=== PATIENT | male | born 1985 | race Caucasian/White ===

== ENCOUNTER 2017-04-21 07:46 | Observation (INO) ==
--- NOTE | 2017-04-21 08:28 | Emergency Department Note ---
Overdose - MDM Narrative Medical decision making narrative: Patient has received 2 doses of Narcan in the emergency department. He is easily arousable. He is satting and maintaining airway at this time. We will admit the patient to the hospitalist for observation. The patient was accepted by Dr. Roberts. - Lab Data Lab results reviewed: Yes I reviewed the patient's lab results. Result diagrams: 04/21/17 08:34 04/21/17 09:18 Lab Results 04/21/17 04/21/17 04/21/17 Range/Units 08:34 08:34 08:37 WBC 5.2 (4.3-11.1) K/mcL RBC 5.13 (4.19-5.50) M/mcL Hgb 14.6 (12.9-16.9) g/dL Hct 43.7 (37.5-50.1) % MCV 85.2 (83.0-100.0) fL MCH 28.5 (28.0-33.3) pg MCHC 33.4 (31.6-35.5) g/dL RDW 13.0 (11.5-14.5) % Plt Count 154 (140-400) K/mcL MPV 12.1 (9.4-12.4) fL Immature Gran % 0.4 (0-4) % Seg Neutrophils % 65.6 % Lymphocytes % 23.3 % Monocytes % 7.6 % Eosinophils % 2.5 % Basophils % 0.6 % Neutrophils # 3.4 (1.6-8.9) K/mcL Lymphocytes # 1.2 (0.6-4.6) K/mcL Monocytes # 0.4 (0.0-1.3) K/mcL Eosinophils # 0.1 (0.0-0.6) K/mcL Basophils # 0.0 (0.0-0.2) K/mcL Sodium (136-145) mEq/L Potassium (3.5-4.5) mEq/L Chloride (98-109) mEq/L Carbon Dioxide (19-29) mEq/L BUN (8-26) mg/dL Creatinine (0.72-1.25) mg/dL Est GFR ( Amer) (> 60) Est GFR (Non-Af Amer) (> 60) BUN/Creatinine Ratio (6-26) Glucose (70-99) mg/dL Calculated Osmolality (280-300) Calcium (8.6-10.8) mg/dL Urine Color Yellow (Yellow) Urine Clarity Clear (Clear) Urine pH 6.0 (5.0-8.0) pH Units Ur Specific [place] 1.029 H (1.010-1.025) Urine Protein Negative (Neg-Trace) mg/dL Urine Glucose (UA) Normal (Normal) mg/dL Urine Ketones Negative (Negative) mg/dL Urine Blood Negative (Negative) Urine Nitrite Negative (Negative) Urine Bilirubin Negative (Negative) Urine Urobilinogen Normal (Normal) mg/dL Ur Leukocyte Esterase Negative (Negative) Ur Culture Indicated? NO (NO) Urine Opiates Screen (Sdhjpe=391) ng/mL Ur Barbiturates Screen (Gpkobg=985) ng/mL Ur Phencyclidine Scrn (Cutoff=25) ng/mL Ur Amphetamines Screen (Qlcspo=3715) ng/mL U Benzodiazepines Scrn (Xfthkm=489) ng/mL Urine Cocaine Screen (Cutoff= 300) ng/mL U Marijuana (THC) Screen (Cutoff = 50) ng/mL Specimen Rejected Hemolyzed 04/21/17 04/21/17 Range/Units 08:42 09:18 WBC (4.3-11.1) K/mcL RBC (4.19-5.50) M/mcL Hgb (12.9-16.9) g/dL Hct (37.5-50.1) % MCV (83.0-100.0) fL MCH (28.0-33.3) pg MCHC (31.6-35.5) g/dL RDW (11.5-14.5) % Plt Count (140-400) K/mcL MPV (9.4-12.4) fL Immature Gran % (0-4) % Seg Neutrophils % % Lymphocytes % % Monocytes % % Eosinophils % % Basophils % % Neutrophils # (1.6-8.9) K/mcL Lymphocytes # (0.6-4.6) K/mcL Monocytes # (0.0-1.3) K/mcL Eosinophils # (0.0-0.6) K/mcL Basophils # (0.0-0.2) K/mcL Sodium 138 (136-145) mEq/L Potassium 4.3 (3.5-4.5) mEq/L Chloride 105 (98-109) mEq/L Carbon Dioxide 25 (19-29) mEq/L BUN 13 (8-26) mg/dL Creatinine 0.83 (0.72-1.25) mg/dL Est GFR ( Amer) > 60 (> 60) Est GFR (Non-Af Amer) > 60 (> 60) BUN/Creatinine Ratio 16 (6-26) Glucose 93 (70-99) mg/dL Calculated Osmolality 286 (280-300) Calcium 9.1 (8.6-10.8) mg/dL Urine Color (Yellow) Urine Clarity (Clear) Urine pH (5.0-8.0) pH Units Ur Specific [place] (1.010-1.025) Urine Protein (Neg-Trace) mg/dL Urine Glucose (UA) (Normal) mg/dL Urine Ketones (Negative) mg/dL Urine Blood (Negative) Urine Nitrite (Negative) Urine Bilirubin (Negative) Urine Urobilinogen (Normal) mg/dL Ur Leukocyte Esterase (Negative) Ur Culture Indicated? (NO) Urine Opiates Screen Negative (Mqfqhd=654) ng/mL Ur Barbiturates Screen Negative (Yzsfon=228) ng/mL Ur Phencyclidine Scrn Negative (Cutoff=25) ng/mL Ur Amphetamines Screen Negative (Kweqzk=9311) ng/mL U Benzodiazepines Scrn Positive H (Tygcgz=842) ng/mL Urine Cocaine Screen Positive H (Cutoff= 300) ng/mL U Marijuana (THC) Screen Negative (Cutoff = 50) ng/mL Specimen Rejected - Radiology Data Radiology results reviewed: Yes I reviewed the patient's radiology results. - EKG Data EKG attestation: Yes I reviewed and interpreted this EKG. EKG results narrative: Heart rate 99 bpm. MA interval 153 ms. QTC 391 ms. Normal sinus rhythm. No ST elevation or ST depression noted. Similar in morphology to EKG from 2010. No acute changes noted. Overdose HPI - General Chief Complaint: ED Overdose Stated Complaint: Overdose Time Seen by Provider: 04/21/17 07:54 Source: EMS Mode of arrival: EMS Limitations: altered mental status Nursing Notes Reviewed: Yes Vital Signs Reviewed: Yes - History of Present Illness HPI Narrative: 31-year-old male with unknown medical history arrives to the emergency department with apparent drug overdose. The patient had unknown substance that he took it was unable to describe to police or EMS. The patient is conscious and answering some questions appropriately and is able to give us his name. He is following some commands at this time. Upon further questioning arrival to the emergency department he states that he took Soma and Xanax. The patient is maintaining his airway at this time. We will obtain labs and admit the patient to the hospitalist service. The patient denies any other complaints at this time. Pt Subjective Complaint: accidental overdose Onset (ago): unknown Intent: accidental Treatments Prior to Arrival: monitor - Related Data Home Medications Medication Instructions Recorded Confirmed Buprenorphine HCl/Naloxone HCl 1 each SL BID 05/31/15 04/21/17 [Suboxone 8 mg-2 mg Sl Film] Allergies Allergy/AdvReac Type Severity Reaction Status Date / Time No Known Allergies Allergy Verified 04/21/17 09:29 All systems ED: reviewed and negative except as stated. Constitutional: Denies: fever, chills, weakness ENT ED: Denies: congestion Cardiovascular: Denies: chest pain Respiratory: Denies: dyspnea Gastrointestinal: Denies: abdominal pain, nausea, vomiting Genitourinary: Denies: urgency, dysuria Neurological: Reports: confusion (But intoxicated.) Past Medical History - Past Medical History Attestation: Yes The following information was validated with the patient. Source: patient Medical history: Reports: no medical history Psychiatric history: Reports: no psych history - Social History Smoking Status: Current every day smoker Alcohol use: Reports: none Drug use: Reports: none Physical Exam - General Limitations: altered mental status General appearance: lethargic - Head Head exam: atraumatic, normocephalic, normal inspection - Eye Eye exam: Present: normal appearance, PERRL, EOMI - ENT ENT exam: normal exam, normal oropharynx, mucous membranes moist - Neck Neck exam: Present: normal inspection, full ROM, trachea midline - Chest Chest inspection: Present: normal inspection, symmetric chest wall rise - Respiratory Respiratory exam: Present: normal lung sounds bilaterally - Cardiovascular Cardiovascular exam: Present: regular rate, normal rhythm, normal heart sounds - Abdominal Exam Abdominal exam: Present: soft, Non-Tender. Absent: tenderness, distention, guarding, rebound, rigidity - Extremities Exam Extremities exam: Present: normal inspection, full ROM. Absent: tenderness, pedal edema - Neurological Exam Neurological exam: Present: alert, CN II-XII intact - Expanded Neurological Exam Patient oriented to: Present: person, place, time Speech: Present: fluid speech Coma Scale Eye Opening: Spontaneous Coma Scale Motor Response: Obeys Commands Coma Scale Verbal Response: Confused Coma Scale Total: 14 Course - Reevaluation(s) Reevaluation #1: Review of the patient's head CT revealed a area of low attenuation concerning for possible recent infarction. The patient has no bleeding and will likely need an MRI once admitted. We will notify the admitting physician. Time: 11:19 Vital Signs Temperature 97.3 F L 04/21/17 07:48 Pulse Rate 88 04/21/17 07:48 Respiratory Rate 10 04/21/17 07:48 Blood Pressure 104/95 04/21/17 07:48 O2 Sat by Pulse Oximetry 96 04/21/17 07:48 Temperature 97.7 F 04/21/17 13:39 Pulse Rate 79 04/21/17 13:39 Respiratory Rate 14 04/21/17 13:39 Blood Pressure 115/75 04/21/17 13:39 O2 Sat by Pulse Oximetry 95 04/21/17 13:39 Oxygen Delivery Oxygen Delivery Room Air Disposition Clinical Impression: Polysubstance abuse, Abnormal head CT Drug overdose Qualifiers: Encounter type: initial encounter Injury intent: accidental or unintentional Qualified Code(s): T50.901A - Poisoning by unspecified drugs, medicaments and biological substances, accidental (unintentional), initial encounter Altered mental status Qualifiers: Altered mental status type: somnolence Qualified Code(s): R40.0 - Somnolence Disposition: Admitted As Inpatient Condition: Undetermined Time of Disposition: 10:18 Attestation Statement - Attestation Attestation: I examined this patient and my medical decision-making was reviewed with the Resident Physician, Dr. Velasco. I agree with the documented findings, disposition and treatment plan as described except to the extent set forth below. Patient is a 31-year-old white male who presents to us by EMS today following a drug overdose. Patient as well as his were both brought to the emergency department today and according to medics they had reportedly been going out on a date and their children all with the grandmother, they were both found wandering and altered outside after the aide walked away from the vehicle. The patient's required intubation and is in the ICU. Patient arrives drowsy but able to arouse with loud voice, appears confused but is able to answer his name answer basic questions about whether he is having any pain or discomfort or symptoms. Patient also was able to tell us that he was taking Soma Xanax and crack cocaine. Patient was given a dose of Narcan with some mild improvement in symptoms. Patient denies any history of falls or trauma. I agree with patient's physical exam findings as documented. Labs were drawn including drug screen EtOH and portal chest x-ray. Patient's labs show positive for benzos and cocaine consistent with his oral history. Did recheck manually a blood pressure after the blood pressure machine gave us a falsely elevated reading, manual blood pressures show stable blood pressure. Patient was sent for CT scan as we are not able to adequately assess his neurologic status due to polysubstance abuse. CT shows questionable findings in the posterior parietal lobe of increased attenuation questionable infarct which is a possibility considering his long-standing cocaine abuse. EKG does not show any acute ischemia. Patient's denying any chest pain pressure or heaviness, denies any headache, denies any nausea vomiting. Patient's mother arrived later during his ED course stating that he has had greater than 15 year history of crack cocaine abuse. Due to patient's ongoing drowsiness and abnormal head CT finding we will admit him for further evaluation and treatment and possible neurologic consult. Patient will also need psychiatric reassessment once his baseline mental status returns. Patient was admitted to the hospitalist service for further evaluation and management. Patient had no deterioration of his mental status while in the emergency department and his vital signs remained stable.
[2017-04-21 08:55] LABS: Basophils % 0.6 %; Eosinophils # 0.1 K/mcL (0.0-0.6); Eosinophils % 2.5 %; Hematocrit 43.7 % (37.5-50.1); Hemoglobin 14.6 g/dL (12.9-16.9); Immature Granulocytes % 0.4 % (0-4); Lymphocytes # 1.2 K/mcL (0.6-4.6); Lymphocytes % 23.3 %; Mean Corpuscular HGB Conc 33.4 g/dL (31.6-35.5); Mean Corpuscular Hemoglobin 28.5 pg (28.0-33.3); Mean Corpuscular Volume 85.2 fL (83.0-100.0); Mean Platelet Volume 12.1 fL (9.4-12.4); Monocytes # 0.4 K/mcL (0.0-1.3); Monocytes % 7.6 %; Neutrophils # 3.4 K/mcL (1.6-8.9); Platelet Count 154 K/mcL (140-400); Red Blood Count 5.13 M/mcL (4.19-5.50); Segmented Neutrophils % 65.6 %
[2017-04-21 09:02] LABS: Bilirubin,Urine Negative (Negative); Blood,Urine Negative (Negative); Clarity,Urine Clear (Clear); Color,Urine Yellow (Yellow); Glucose,Urine (UA) Normal (Normal); Ketones,Urine Negative (Negative); Leukocyte Esterase,Urine Negative (Negative); Nitrite,Urine Negative (Negative); Protein,Urine Negative (Neg-Trace); Specific Gravity,Urine 1.029 (1.010-1.025); Urobilinogen,Urine Normal (Normal)
[2017-04-21 09:28] LABS: Amphetamine Screen,Urine Negative ng/mL (Cutoff=1000); Barbiturate Screen,Urine Negative ng/mL (Cutoff=200); Benzodiazepines Screen,Urine Positive ng/mL (Cutoff=200); Cannabinoid Screen,Urine Negative ng/mL (Cutoff = 50); Cocaine Screen,Urine Positive ng/mL (Cutoff= 300); Opiate Screen,Urine Negative ng/mL (Cutoff=300); Phencyclidine Screen,Urine Negative ng/mL (Cutoff=25)
[2017-04-21 10:03] LABS: BUN/Creatinine Ratio 16 (6-26); Blood Urea Nitrogen 13 mg/dL (8-26); Calcium 9.1 mg/dL (8.6-10.8); Carbon Dioxide 25 mEq/L (19-29); Chloride 105 mEq/L (98-109); Glucose 93 mg/dL (70-99); Osmolality,Calculated 286 (280-300); Potassium 4.3 mEq/L (3.5-4.5); Sodium 138 mEq/L (136-145); eGFR For African Americans > 60 (> 60); eGFR For Non-African Americans > 60 (> 60)
[2017-04-21] MEDS ORDERED: Naloxone 0.4 MG/ML INJ IVP PRN (11:57)
[2017-04-21] MEDS ORDERED: Acetaminophen 325 MG TABLET PO PRN (12:03)
[2017-04-21] MEDS ORDERED: Ondansetron 4 MG/2 ML VIAL IVP PRN (12:03)
[2017-04-21] MEDS ORDERED: *HR* LORazepam 2 MG/ML VIAL IVP PRN (12:11)
--- NOTE | 2017-04-21 12:22 | Internal Med History&Physical ---
<Stephan Hensley - Last Filed: 04/21/17 15:54> Date of Encounter: 04/21/17 Time of Encounter: 11:15 Assessment and Plan (1) Drug overdose Current visit: Yes Status: Acute Pt. presents with drug overdose last night. Pt. is somnolent on exam and unable to speak. When first admitted to ED, pt. was awake and reported that he took Soma and Xanax. Urine drug screen positive for benzodiazepines and cocaine. Pts. mother reports he uses crack cocaine. On exam, pt. is somnolent and hard to wake up even w/sternal rub. D/t pts. somnolence, unclear if overdose was intentional or accidental. Pts. currently in ICU d/t drug overdose as well. Pts. mother reports he would not attempt suicide and pt. has no psych or suicide attempt hx. Aspiration precautions and padding for side rails ordered. CT of the head shows findings suspicious for presence of area of asymmetric low attenuation within posterior parasagittal parietal occipital region. Finding raises possibility of changes associated with acute/ recent infarction. Clinical correlation would be helpful. Follow-up MRI examination with diffusion imaging is recommended for more complete evaluation. MRI ordered to r/ o possible infarct/ischemia. Continuous telemetry. Supplemental O2 and SpO2 monitoring. Ativan 1 mg Q6 PRN for agitation d/t withdrawal. SW consult ordered to assess for rehab needs. Will consider neurology consult based on MRI results. Monitor f/u labs and pt. closely. Pt. discussed w/Dr. Roberts who agrees w/plan of care. Pt. is at high risk for further morbidity d/t current drug overdose and 15-year hx of drug abuse. Observation. Qualifiers: Encounter type: initial encounter Injury intent: accidental or unintentional Qualified Code(s): T50.901A - Poisoning by unspecified drugs, medicaments and biological substances, accidental (unintentional), initial encounter (2) Altered mental status Current visit: Yes Status: Acute Pt. presents with altered mental status d/t drug overdose. On admission when patient was awake, he reported taking Soma and Xanax. Pts. drug screen is positive for benzodiazepines and cocaine. On exam, pt. is somnolent and hard to wake up even w/sternal rub. Aspiration precautions and padding for side rails ordered. CT of the head shows findings suspicious for presence of area of asymmetric low attenuation within posterior parasagittal parietal occipital region. Finding raises possibility of changes associated with acute/ recent infarction. Clinical correlation would be helpful. Follow-up MRI examination with diffusion imaging is recommended for more complete evaluation. MRI ordered to r/o possible infarct/ischemia. Continuous telemetry. Supplemental O2 and SpO2 monitoring. Monitor f/u labs and pt. closely. Qualifiers: Altered mental status type: somnolence Qualified Code(s): R40.0 - Somnolence (3) DVT prophylaxis Current visit: Yes Status: Acute Bilateral SCDs on LEs for DVT prophylaxis. Internal Medicine - H&P: HPI Chief complaint: Drug Overdose Admitted From: Emergency Dept Plans for Post Hospital Care: Home History of present illness: Mr. Cullen is a 31 year old male with no medical hx presents from the ED with chief complaint of drug overdose. Pt. is somnolent and non-responsive at the present time. Pts. mother is present and reports that she spoke with the pt. last night at midnight via phone and he was fine. Pts. is also currently admitted in ICU for similar drug overdose. Pts. urine drug screen is positive for benzodiazepines and cocaine. Upon arrival to ED when pt. was awake, he reported that he took Soma and Xanax. Pts. mother reports he also uses crack cocaine. Pt. is unable to confirm is overdose was intentional, but mother feels that it was not and that he would not attempt suicide. Pt. has no prior psychiatric hx or suicide attempt. Past Med Surg Social Fam HX - Past Medical History Source: old records reviewed, obtained from family Medical history: no medical history Psychiatric history: no psych history - Social History Smoking Status: Current every day smoker Packs per day: 1 PPD Alcohol use: none Drug use: cocaine, prescription drug abuse Current living situation: Home, With Family Activity Level: Independent ambulation Recent Out of Country Travel Within the Last 8 Weeks: No Exposure or Possible Exposure to Illness During Travel: No - Family History Father Race: Family Member Ethnicity: Non- Living Status: Still Living Hx Family Cardiac Disorders: Yes (CAD) Hx Family Endocrine Disorder: Yes (DM) Mother Race: Family Member Ethnicity: Non- Living Status: Still Living Hx Family Cardiac Disorders: Yes (HTN) Sister Race: Family Member Ethnicity: Non- Living Status: Still Living Hx Family Medical Disorders: No Internal Medicine - H&P: Meds Buprenorphine HCl/Naloxone HCl [Suboxone 8 mg-2 mg Sl Film] 1 each SL BID [History] 3 Allergy/AdvReac Type Severity Reaction Status Date / Time No Known Allergies Allergy Verified 04/21/17 09:29 ROS unobtainable: due to mental status All Systems PM: A 10-system review of systems was performed and is negative for pertinent findings except as documented above in the HPI. - Constitutional Vitals: Temp Pulse Resp BP Pulse Ox 97.3 F L 89 23 145/94 96 04/21/17 07:48 04/21/17 11:46 04/21/17 11:46 04/21/17 11:46 04/21/17 11:46 General appearance: Present: A&O X 0 - Head Head exam: Present: atraumatic, normocephalic - Eye Eye exam: Present: PERRL, conjuntiva pink, sclera anicteric Pupils: Present: PERRL - ENT ENT exam: Present: normal exam - Neck Neck exam general surgery: Present: normal inspection, trachea midline - Respiratory Respiratory exam: Present: CTAB. Absent: accessory muscle use, rales, rhonchi, wheezes - Cardiovascular Cardiovascular exam: Present: RRR, +S1, +S2. Absent: diastolic murmur, gallop, rubs, systolic murmur - GI/Abdominal GI/Abdominal exam: Present: normal bowel sounds, soft, no peritoneal signs. Absent: distended, tenderness - Rectal Rectal exam: Present: deferred - Additional comments: exam deferred. - Extremities Exam Extremities exam: Present: warm, radial pulses palpable and symmetrical. Absent : calf tenderness, cyanotic, pedal edema - Neurological Exam Neurological exam: Present: altered - Skin Skin exam: Present: dry, intact Internal Med - H&P Results - Labs CBC & Chem 7: 04/21/17 08:34 04/21/17 09:18 - EKG Data EKG shows normal: sinus rhythm - EKG Data Prior EKG available for review: yes When compared to previous EKG: there is no significant change Interpretation IM: normal EKG EKG comments: 04/21/17 12:25 EKG dated 01/13/11 shows sinus rhythm with lateral ST elevation and possible early repolarization. EKG dated 04/21/17 shows sinus rhythm and normal ECG. - Diagnostic Studies CT scan - head Additional comments: Impressions Head CT 04/21/17 10:28 IMPRESSION: Findings suspicious for presence of area of asymmetric low attenuation within posterior parasagittal parietal occipital region. Finding raises possibility of changes associated with acute/ recent infarction. Clinical correlation would be helpful. Follow-up MRI examination with diffusion imaging is recommended for more complete evaluation. D/ / Saul Melnedez MD / Saul Melendez MD Interpreting Provider: Saul Melendez MD Chest x-ray Additional comments: Impressions Chest X-Ray 04/21/17 08:02 IMPRESSION: No acute cardiopulmonary process identified. D/ / Kenn Posada MD / Kenn Posada MD Interpreting Provider: Kenn Posada MD <Cindy Roberts - Last Filed: 04/21/17 16:11> Date of Encounter: 04/21/17 Internal Medicine - H&P: HPI History of present illness: Mr. Cullen is a 31 year old male All Systems PM: A 10-system review of systems was performed and is negative for pertinent findings except as documented above in the HPI. - Constitutional Vitals: Temp Pulse Resp BP Pulse Ox 97.7 F 79 14 115/75 95 04/21/17 13:39 04/21/17 13:39 04/21/17 13:39 04/21/17 13:39 04/21/17 13:39 Internal Med - H&P Results - Labs CBC & Chem 7: 04/21/17 08:34 04/21/17 09:18 Labs: Cardiac Enzymes 04/21/17 Range/Units 13:45 Troponin I 0.02 (0-0.03) ng/mL - Attending Attestation I examined this patient and my medical decision-making was reviewed with the Resident Physician. I agree with the documented findings, disposition and treatment plan as described except to the extent set forth below.
[2017-04-21] MEDS: *HR* Buprenorphine HCl 8 MG TAB.SUBL SL SCH (22:27)
[2017-04-22 07:43] LABS: Basophils # 0.1 K/mcL (0.0-0.2); Basophils % 1.1 %; Eosinophils # 0.2 K/mcL (0.0-0.6); Hemoglobin 15.1 g/dL (12.9-16.9); Immature Granulocytes % 0.4 % (0-4); Lymphocytes % 34.7 %; Mean Corpuscular HGB Conc 32.8 g/dL (31.6-35.5); Mean Corpuscular Hemoglobin 28.5 pg (28.0-33.3); Mean Corpuscular Volume 86.8 fL (83.0-100.0); Monocytes # 0.6 K/mcL (0.0-1.3); Neutrophils # 2.9 K/mcL (1.6-8.9); Platelet Count 178 K/mcL (140-400); Red Cell Distribution Width 13.2 % (11.5-14.5); Segmented Neutrophils % 49.8 %
[2017-04-22 07:52] VITALS: BP 134/77
[2017-04-22 07:57] LABS: Alanine Aminotransferase 53 Units/L (0-55); Albumin 3.3 g/dL (3.5-5.0); Alkaline Phosphatase 82 Units/L (38-126); Aspartate Amino Transferase 28 Units/L (5-34); BUN/Creatinine Ratio 13 (6-26); Bilirubin,Total 0.3 mg/dL (0.2-1.2); Blood Urea Nitrogen 11 mg/dL (8-26); Calcium 9.1 mg/dL (8.6-10.8); Carbon Dioxide 29 mEq/L (19-29); Chloride 104 mEq/L (98-109); Chol/HDL Ratio 2.9 (0-4.9); Cholesterol 123 mg/dL (< 200); Globulin 3.3 g/dL (2.4-3.5); Glucose 83 mg/dL (70-99); HDL Cholesterol 43 mg/dL (40-59); LDL Cholesterol,Calculated 65 mg/dL (0-99); Magnesium 2.1 mg/dL (1.6-2.6); Osmolality,Calculated 287 (280-300); Potassium 4.4 mEq/L (3.5-4.5); Sodium 139 mEq/L (136-145); Total Protein 6.6 g/dL (6.0-8.3); Triglycerides 74 mg/dL (< 150); eGFR For African Americans > 60 (> 60); eGFR For Non-African Americans > 60 (> 60)
[2017-04-22 08:34] LABS: Hemoglobin A1C 5.4 %
[2017-04-22] MEDS: *HR* Buprenorphine HCl 8 MG TAB.SUBL SL SCH (09:02)
--- NOTE | 2017-04-22 11:14 | Discharge Summary ---
Date of Encounter: 04/22/17 Time of Encounter: 10:56 - Discharge Diagnosis (1) Drug overdose Priority: Primary Status: Acute Qualifiers: Encounter type: initial encounter Injury intent: accidental or unintentional Qualified Code(s): T50.901A - Poisoning by unspecified drugs, medicaments and biological substances, accidental (unintentional), initial encounter (2) DVT prophylaxis Priority: Secondary Status: Acute (3) Altered mental status Priority: Primary Status: Resolved Qualifiers: Altered mental status type: somnolence Qualified Code(s): R40.0 - Somnolence (4) Polysubstance abuse Priority: Secondary Status: Chronic (5) Abnormal head CT Priority: Secondary Status: Acute Comments: repeat MRI reported no acute intracranial abnormality - Discharge Medications Home Medications: Buprenorphine HCl/Naloxone HCl [Suboxone 8 mg-2 mg Sl Film] 1 each SL BID [History] Allergies/Adverse Reactions: 3 Allergy/AdvReac Type Severity Reaction Status Date / Time No Known Allergies Allergy Verified 04/21/17 09:29 Procedures/tests Complete & Pending: Procedures Performed prior 72 hours Category Date Time Status MR head/brain wo con [MR] Stat MRI 04/21/17 12:10 Completed Date of admission: 04/21/17 10:35 Primary care physician: PCP NONE Consults: 04/21/17 12:07 Consult to [employer] [CONS] Routine Reason for SW Consult: Please assess patient for need for drug rehabilitation d/t current overdose and hx of drug abuse for the past 15 years Discharging clinician: Radha Vargas Anticipated date of discharge: 04/22/17 - Patient Status Disposition: Home, Self-Care Condition: Good Functional capacity at discharge: independent ambulation Overall status at discharge: patient is back to baseline - Discharge Instructions Follow Up With: NONE,PCP [Primary Care Provider] - Additional Instructions: Resume all home medications as prescribed by your primary care physician. - Diet and Activity Activity: increase activity as tolerated Diet: advance to your usual diet Hospital course: Mr. Cullen is a 31 year old male with hx of polysubstance abuse admitted with altered mental status secondary to drug overdose. Urine tox screen was positive for benzodiazepines and cocaine. Pt was monitored overnight and currently his mental status is back to baseline AAO x 3. He states he has history of drug abuse but has been clean for a while with using suboxone. He states he was having arguments with his and they both were using SOMA (Carisoprodol) along with Xanax. He states he was [place] where he came across cocaine and he started using that in addition to the Soma and xanax he already was. States this was with the intend to get high and not as a suicide attempt. Reports of having a daughter and states he wants to be there to take care of her and denies any suicidal ideation. Reports of this episode being an accidental overdose. Extensive substance abuse counseling is provided. He reports of having an appointment with his rehab physician in am(Sunday04/23/17) and states that's where he gets his Suboxone from. He denies any discomfort and is remorseful of his actions preceding his hospitalization. He states he has the resources and does not need any further rehab resources prior to discharge. He is hemodynamically stable and will be discharged to home with follow up with his pcp and rehab physician. reports of having suboxone at home - Time Spent with Patient Total time spent providing and/or coordinating discharge services: Greater than 30 minutes - Constitutional Vitals: Temp Pulse Resp BP Pulse Ox 98.2 F 79 17 134/77 94 04/22/17 07:49 04/22/17 07:49 04/22/17 07:49 04/22/17 07:49 04/22/17 07:49 General appearance: Present: cooperative, A&O X 3, no acute distress, obese, answers questions appropriately - Head Head exam: Present: atraumatic, normocephalic - Eye Eye exam: Present: normal appearance, conjuntiva pink, sclera anicteric - Respiratory Respiratory exam: Present: CTAB. Absent: accessory muscle use, rales, rhonchi, wheezes - Cardiovascular Cardiovascular exam: Present: RRR, +S1, +S2. Absent: diastolic murmur, gallop, rubs, systolic murmur - GI/Abdominal GI/Abdominal exam: Present: normal bowel sounds, soft, no peritoneal signs. Absent: distended, tenderness - Extremities Exam Extremities exam: Present: warm, radial pulses palpable and symmetrical. Absent : calf tenderness, cyanotic, pedal edema - Neurological Exam Neurological exam: Present: alert, oriented X3 - Psychiatric Psychiatric exam: Present: normal affect, normal mood. Absent: depressed, homicidal ideation, manic, suicidal ideation
--- NOTE | 2017-04-23 17:21 | Electrocardiograph Report ---
[address] [address] Test Date: 2017-04-21 Pat Name: Gordo Cullen Department: 104 Room: 2N12 Gender: M Storage Engineer: QUIQUE : 1985 Requested By: Stephan Velasco Order Number: [id number] Reading MD: Suman Merrill Measurements Intervals [place] Rate: 99 P: 45 DC: 153 QRS: 14 QRSD: 100 T: 21 QT: 335 QTc: 391 Interpretive Statements SINUS RHYTHM Electronically Signed On 04-23-2017 17:19:28 EST by Suman Merrill
== END 2017-04-22 12:05 | disposition home or self-care (01) ==
LOC: EMEROO 07:46 → 3ANU 07:46 → SUATTDRO 10:35 → 2NNU 12:36
PROVIDERS: ADMIT Internal Medicine Cardiovascular Disease; ATTEND Internal Medicine

== ENCOUNTER 2018-04-22 23:17 | Observation (INO) ==
[~2018-04-22 23:17] MED LIST: *HR* LORazepam 2 MG/ML VIAL ONE
[2018-04-22] MEDS ORDERED: 0.9 % Sodium Chloride 1,000 ML IVC ONE (23:31)
[2018-04-22] MEDS ORDERED: *HR* LORazepam 2 MG/ML VIAL IVP ONE (23:54)
[2018-04-23 00:05] LABS: Amphetamine Screen,Urine Negative ng/mL (Cutoff=1000); Barbiturate Screen,Urine Negative ng/mL (Cutoff=200); Benzodiazepines Screen,Urine Positive ng/mL (Cutoff=200); Cannabinoid Screen,Urine Positive ng/mL (Cutoff = 50); Cocaine Screen,Urine Negative ng/mL (Cutoff= 300); Opiate Screen,Urine Negative ng/mL (Cutoff=300); Phencyclidine Screen,Urine Negative ng/mL (Cutoff=25)
[2018-04-23 00:20] LABS: Bilirubin,Urine Negative (Negative); Blood,Urine Negative (Negative); Clarity,Urine Clear (Clear); Color,Urine Yellow (Yellow); Glucose,Urine (UA) Normal (Normal); Ketones,Urine Negative (Negative); Leukocyte Esterase,Urine Negative (Negative); Nitrite,Urine Negative (Negative); PH,Urine 5.5 pH Units (5.0-8.0); Protein,Urine Negative (Neg-Trace); Specific Gravity,Urine 1.018 (1.010-1.025); Urobilinogen,Urine Normal (Normal)
[2018-04-23 00:23] LABS: Basophils % 0.6 %; Eosinophils # 0.3 K/mcL (0.0-0.6); Eosinophils % 5.3 %; Hematocrit 42.4 % (37.5-50.1); Hemoglobin 14.1 g/dL (12.9-16.9); Immature Granulocytes % 0.3 % (0-4); Lymphocytes # 1.7 K/mcL (0.6-4.6); Lymphocytes % 25.9 %; Mean Corpuscular HGB Conc 33.3 g/dL (31.6-35.5); Mean Corpuscular Hemoglobin 28.3 pg (28.0-33.3); Mean Platelet Volume 10.9 fL (9.4-12.4); Monocytes # 0.5 K/mcL (0.0-1.3); Monocytes % 8.2 %; Neutrophils # 3.8 K/mcL (1.6-8.9); Platelet Count 149 K/mcL (140-400); Red Blood Count 4.99 M/mcL (4.19-5.50); Red Cell Distribution Width 12.8 % (11.5-14.5); Segmented Neutrophils % 59.7 %
[2018-04-23 00:28] LABS: Acetaminophen < 10 mcg/mL (10-20); Salicylate < 2.5 mg/dL (15.0-30.0)
[2018-04-23 00:35] LABS: Troponin I < 0.03 ng/mL (< 0.04)
--- NOTE | 2018-04-23 00:48 | Emergency Department Note ---
Disposition Clinical Impression: Altered mental status, Ingestion of unknown drug, Seizure-like activity Disposition: Admitted As Inpatient Condition: Fair Time of Disposition: 01:31 General Adult HPI - General Chief complaint: ED Overdose Stated complaint: overdose Time Seen by Provider: 04/22/18 23:22 Source: EMS Mode of arrival: EMS Limitations: altered mental status Nursing Notes Reviewed: Yes Vital Signs Reviewed: Yes - History of Present Illness HPI Narrative: Patient is a 32-year-old male with past medical history of substance abuse presents to the emergency Department by squad for altered mental status and found unresponsive. According to EMS there seemed to call that the patient was unresponsive. He lives at his mother's house. The patient was found in the bed Empty pill bottles that had recently been filled and he was cyanotic. Squad administered a total of 6 mg of Narcan, 4 mg intranasal and 2 mg IV with a positive response. The patient was loaded into the back of the squad still altered and began to have seizure-like activity with his eyes rolling into the back of his head and with shaking of the upper and lower extremities. 2.5 mg of Versed was administered IV 2. Patient's seizure activity appeared to stop at this time. Upon arrival to room T1 patient was following commands and is able to state his name. Still very somnolent with his eyes open looking straight ahead having difficulty answering other questions. ENT showed me a list of medications that were found near the patient included Subutex, Suboxone, and Flexeril. Pain Scale: 0 - Related Data Home Medications Medication Instructions Recorded Confirmed RX: Buprenorphine HCl/Naloxone HCl 1 each SL BID 05/31/15 04/21/17 [Suboxone 8 mg-2 mg Sl Film] Previous Rx's Medication Instructions Recorded Naproxen [Naprosyn] 500 mg PO BID PRN #20 tablet 12/07/17 Orphenadrine [Norflex] 100 mg PO BID #6 tablet.er 04/15/18 RX: Lidocaine Patch [Lidoderm 5% 1 each TP DAILY PRN #3 adh..patch 04/15/18 patch] RX: Naproxen [Naprosyn] 500 mg PO BID #10 tablet 04/15/18 Allergies Allergy/AdvReac Type Severity Reaction Status Date / Time No Known Allergies Allergy Verified 12/06/17 23:03 Limitations: ROS unobtainable due to patients medical condition Past Medical History - Past Medical History Attestation: Yes The following information was validated with the patient. Medical history: Reports: hypertension Psychiatric history: Reports: no psych history - Social History Smoking Status: Current every day smoker Smokeless Tobacco Status: No Alcohol use: Reports: none Drug use: Reports: cocaine, prescription drug abuse Physical Exam - General Limitations: altered mental status General appearance: lethargic, other (Patient is mainating airway. Minimally responsive to verbal commands, states name and squeezes my hands on command. ) - Head Head exam: atraumatic, normocephalic, normal inspection - Eye Eye exam: Present: normal appearance, PERRL, EOMI - ENT ENT exam: normal exam, normal oropharynx, mucous membranes dry - Neck Neck exam: Present: normal inspection, full ROM, trachea midline - Chest Chest inspection: Present: normal inspection, symmetric chest wall rise - Respiratory Respiratory exam: Present: normal lung sounds bilaterally. Absent: respiratory distress, wheezes - Cardiovascular Cardiovascular exam: Present: regular rate, normal rhythm, normal heart sounds, +S1, +S2 - Abdominal Exam Abdominal exam: Present: soft, Non-Tender, normal bowel sounds - Extremities Exam Extremities exam: Present: normal inspection, normal capillary refill. Absent: tenderness, pedal edema - Back Exam Back exam: Present: normal inspection, full ROM - Neurological Exam Neurological exam: Present: other (unable to assess at this time) - Expanded Neurological Exam Coma Scale Eye Opening: To Voice Coma Scale Motor Response: Obeys Commands Coma Scale Verbal Response: Confused Coma Scale Total: 13 - Skin Skin exam: Present: warm, dry, intact, normal color Course Course Narrative: Mr. this time is multiple drug ingestion patient was found at home next multiple pills at sedating effects. He also possibly experienced a seizure which was resolved with Versed and route. Patient will undergo evaluation for altered mental status. He is protecting his own airway at this time and vital signs are within normal limits. Ultimately the patient will need to be admitted for continued observation we will continue to monitor his neuro status. - Reevaluation(s) Reevaluation #1: Patient's mental status is improving he is oriented times threes able to follow commands in all extremities and states he is hungry and needs something for pain. discussed with the patient negative Tylenol or ibuprofen at this time for pain and is just now improving as far as his mental status. Patient states that he did not intentionally overdose and had no intentions of suicidal ideation or self-harm. Discussed with the patient that his lab work so far is negative. Discussed his head CT and EKG are unremarkable. Chest x-ray does shows concer marco signs of pulmonary edema which may be attributed to the fact that the patient was responsive to Narcan possible opiate overdose. Discussed with the patient plan is time and in the hospital for further observation and resolution of his symptoms. Patient agrees this plan. Discussed the patient case with Dr. Lawson. Time: 01:13 Vital Signs Temperature 97.8 F 04/22/18 23:19 Pulse Rate 89 04/22/18 23:19 Respiratory Rate 21 04/22/18 23:19 Blood Pressure 149/117 04/22/18 23:19 O2 Sat by Pulse Oximetry 100 04/22/18 23:19 Temperature 97.8 F 04/22/18 23:19 Pulse Rate 84 04/23/18 01:28 Respiratory Rate 21 04/23/18 01:28 Blood Pressure 127/80 04/23/18 01:28 O2 Sat by Pulse Oximetry 100 04/23/18 01:28 Oxygen Delivery Oxygen Delivery Room Air Medical Decision Making - Medical Records Medical records reviewed: Yes I reviewed the patient's medical records. - Lab Data Lab results reviewed: Yes I reviewed the patient's lab results. Result diagrams: 04/22/18 23:46 04/22/18 23:46 Lab Results 04/22/18 04/22/18 04/22/18 Range/Units 23:41 23:46 23:46 WBC 6.4 (4.3-11.1) K/mcL RBC 4.99 (4.19-5.50) M/mcL Hgb 14.1 (12.9-16.9) g/dL Hct 42.4 (37.5-50.1) % MCV 85.0 (83.0-100.0) fL MCH 28.3 (28.0-33.3) pg MCHC 33.3 (31.6-35.5) g/dL RDW 12.8 (11.5-14.5) % Plt Count 149 (140-400) K/mcL MPV 10.9 (9.4-12.4) fL Immature Gran % 0.3 (0-4) % Seg Neutrophils % 59.7 % Lymphocytes % 25.9 % Monocytes % 8.2 % Eosinophils % 5.3 % Basophils % 0.6 % Neutrophils # 3.8 (1.6-8.9) K/mcL Lymphocytes # 1.7 (0.6-4.6) K/mcL Monocytes # 0.5 (0.0-1.3) K/mcL Eosinophils # 0.3 (0.0-0.6) K/mcL Basophils # 0.0 (0.0-0.2) K/mcL Sodium (136-145) mEq/L Potassium (3.5-5.1) mEq/L Chloride (98-107) mEq/L Carbon Dioxide (23-29) mEq/L BUN (6-20) mg/dL Creatinine (0.70-1.30) mg/dL Est GFR ( Amer) (> 60) Est GFR (Non-Af Amer) (> 60) BUN/Creatinine Ratio (6-26) Glucose (70-105) mg/dL Calculated Osmolality (280-300) Calcium (8.6-10.3) mg/dL Total Bilirubin (0.3-1.0) mg/dL Direct Bilirubin (0.0-0.2) mg/dL Indirect Bilirubin (0.0-1.2) mg/dL AST (13-39) Units/L ALT (7-52) Units/L Alkaline Phosphatase (34-104) Units/L Creatine Kinase (30-223) Units/L Troponin I (< 0.04) ng/mL Serum Total Protein (6.4-8.9) g/dL Albumin (3.5-5.7) g/dL Globulin (2.4-3.5) g/dL Albumin/Globulin Ratio (1.1-2.2) TSH (0.340-5.600) mcIU/mL Urine Color Yellow (Yellow) Urine Clarity Clear (Clear) Urine pH 5.5 (5.0-8.0) pH Units Ur Specific [place] 1.018 (1.010-1.025) Urine Protein Negative (Neg-Trace) mg/dL Urine Glucose (UA) Normal (Normal) mg/dL Urine Ketones Negative (Negative) mg/dL Urine Blood Negative (Negative) Urine Nitrite Negative (Negative) Urine Bilirubin Negative (Negative) Urine Urobilinogen Normal (Normal) mg/dL Ur Leukocyte Esterase Negative (Negative) Ur Culture Indicated? NO (NO) Salicylates (15.0-30.0) mg/dL Urine Opiates Screen Negative (Wvlclv=844) ng/mL Acetaminophen (10-20) mcg/mL Ur Barbiturates Screen Negative (Upyhfm=433) ng/mL Ur Phencyclidine Scrn Negative (Cutoff=25) ng/mL Ur Amphetamines Screen Negative (Rmczje=6536) ng/mL U Benzodiazepines Scrn Positive H (Pweojk=699) ng/mL Urine Cocaine Screen Negative (Cutoff= 300) ng/mL U Marijuana (THC) Screen Positive H (Cutoff = 50) ng/mL Ur Drug Screen Interp See Below Ethyl Alcohol (Less than 10) mg/dL 04/22/18 04/22/18 04/22/18 Range/Units 23:46 23:46 23:46 WBC (4.3-11.1) K/mcL RBC (4.19-5.50) M/mcL Hgb (12.9-16.9) g/dL Hct (37.5-50.1) % MCV (83.0-100.0) fL MCH (28.0-33.3) pg MCHC (31.6-35.5) g/dL RDW (11.5-14.5) % Plt Count (140-400) K/mcL MPV (9.4-12.4) fL Immature Gran % (0-4) % Seg Neutrophils % % Lymphocytes % % Monocytes % % Eosinophils % % Basophils % % Neutrophils # (1.6-8.9) K/mcL Lymphocytes # (0.6-4.6) K/mcL Monocytes # (0.0-1.3) K/mcL Eosinophils # (0.0-0.6) K/mcL Basophils # (0.0-0.2) K/mcL Sodium 138 (136-145) mEq/L Potassium 4.2 (3.5-5.1) mEq/L Chloride 104 (98-107) mEq/L Carbon Dioxide 29 (23-29) mEq/L BUN 16 (6-20) mg/dL Creatinine 0.76 (0.70-1.30) mg/dL Est GFR ( Amer) > 60 (> 60) Est GFR (Non-Af Amer) > 60 (> 60) BUN/Creatinine Ratio 21 (6-26) Glucose 86 (70-105) mg/dL Calculated Osmolality 286 (280-300) Calcium 8.7 (8.6-10.3) mg/dL Total Bilirubin 0.3 (0.3-1.0) mg/dL Direct Bilirubin 0.1 (0.0-0.2) mg/dL Indirect Bilirubin 0.2 (0.0-1.2) mg/dL AST 18 (13-39) Units/L ALT 30 (7-52) Units/L Alkaline Phosphatase 78 (34-104) Units/L Creatine Kinase 96 (30-223) Units/L Troponin I < 0.03 (< 0.04) ng/mL Serum Total Protein 6.5 (6.4-8.9) g/dL Albumin 4.0 (3.5-5.7) g/dL Globulin 2.5 (2.4-3.5) g/dL Albumin/Globulin Ratio 1.6 (1.1-2.2) TSH 2.795 (0.340-5.600) mcIU/mL Urine Color (Yellow) Urine Clarity (Clear) Urine pH (5.0-8.0) pH Units Ur Specific [place] (1.010-1.025) Urine Protein (Neg-Trace) mg/dL Urine Glucose (UA) (Normal) mg/dL Urine Ketones (Negative) mg/dL Urine Blood (Negative) Urine Nitrite (Negative) Urine Bilirubin (Negative) Urine Urobilinogen (Normal) mg/dL Ur Leukocyte Esterase (Negative) Ur Culture Indicated? (NO) Salicylates < 2.5 L (15.0-30.0) mg/dL Urine Opiates Screen (Ubmgis=519) ng/mL Acetaminophen < 10 L (10-20) mcg/mL Ur Barbiturates Screen (Ugerel=523) ng/mL Ur Phencyclidine Scrn (Cutoff=25) ng/mL Ur Amphetamines Screen (Gqverp=1179) ng/mL U Benzodiazepines Scrn (Drfdjh=412) ng/mL Urine Cocaine Screen (Cutoff= 300) ng/mL U Marijuana (THC) Screen (Cutoff = 50) ng/mL Ur Drug Screen Interp Ethyl Alcohol < 10 (Less than 10) mg/dL - Radiology Data Radiology results reviewed: Yes I reviewed the patient's radiology results. Chest X-Ray 04/22/18 23:31 IMPRESSION: 1. Mild pulmonary edema versus artifact caused by the portable technique and low lung volumes. 2. Interval enlargement of the cardiac silhouette is probably due to lower lung volumes. If there is concern for pericardial effusion an echocardiogram could be obtained. D/ / Miguel Sheth MD / Miguel Sheth MD Interpreting Provider: Miguel Sheth MD Head CT 04/23/18 00:30 IMPRESSION: No acute intracranial abnormality. D/ / Neal Dunn / Neal Dunn Interpreting Provider: Neal Dunn - EKG Data EKG #1 EKG attestation: Yes I reviewed and interpreted this EKG. EKG results narrative: EKG done at 23:26 shows sinus rhythm at a rate of 85 bpm. Normal axis. Interva ls within normal limits. No signs of ST elevation, ST depression or Q waves present. Critical Care Time Critical Care Time: Yes Total Critical Care Time: 34 Attestation: Acute altered mental status and polysubstance overdose Attestation Statement - Attestation Attestation: DR Ulloa note: Patient seen in conjunction with resident Dr. Josiah Walden. Please see his charting for complete documentation. Assessment [id number] time with patient and agree with patient's treatment in this position. Patient's mental status is now oriented. No chronic activity remains. Patient follows commands and after arrival. Medics at the scene report that there was bowels of Subutex, Suboxone, Flexeril, and Xanax. His presentation overdose is consistent with Flexeril. No obvious signs of trauma. CT imaging and blood work and urinalysis reviewed. Admitted with stable vital signs. His altered mental status had improved. Due to his level of sedation and coingestion of 4 different drugs he will need prolonged observation as an inpatient in the hospital. Mother at bedside is very upset with the patient and reports he is done things like this Many Times in the last 10 years.
[2018-04-23 00:52] LABS: Alanine Aminotransferase 30 Units/L (7-52); Albumin/Globulin Ratio 1.6 (1.1-2.2); Alkaline Phosphatase 78 Units/L (34-104); Aspartate Amino Transferase 18 Units/L (13-39); BUN/Creatinine Ratio 21 (6-26); Bilirubin,Direct 0.1 mg/dL (0.0-0.2); Bilirubin,Indirect 0.2 mg/dL (0.0-1.2); Bilirubin,Total 0.3 mg/dL (0.3-1.0); Blood Urea Nitrogen 16 mg/dL (6-20); Calcium 8.7 mg/dL (8.6-10.3); Carbon Dioxide 29 mEq/L (23-29); Chloride 104 mEq/L (98-107); Ethanol < 10 mg/dL (Less than 10); Globulin 2.5 g/dL (2.4-3.5); Glucose 86 mg/dL (70-105); Osmolality,Calculated 286 (280-300); Potassium 4.2 mEq/L (3.5-5.1); Sodium 138 mEq/L (136-145); Thyroid Stimulating Hormone 2.795 mcIU/mL (0.340-5.600); Total Protein 6.5 g/dL (6.4-8.9); eGFR For Non-African Americans > 60 (> 60)
[2018-04-23] MEDS: D10% in Water 500 ML IVC SCH ×2 (01:11→13:11)
[2018-04-23] MEDS ORDERED: Naloxone 0.4 MG/ML INJ IVP PRN (03:43)
[2018-04-23] MEDS ORDERED: Ibuprofen 400 MG TABLET PO PRN (03:43)
[2018-04-23] MEDS ORDERED: 0.9 % Sodium Chloride 1,000 ML IVC SCH (03:45)
--- NOTE | 2018-04-23 03:47 | Internal Med History&Physical ---
<Elizabeth Merrill - Last Filed: 04/23/18 04:20> Date of Encounter: 04/23/18 Time of Encounter: 03:46 Internal Medicine - H&P: HPI Chief complaint: Altered Mental Status/Drug Ingestion Admitted From: Emergency Dept History of present illness: Mr. Cullen is a 32 year old male with no significant PMHx admitted to the hospital for altered mental status and possible drug overdose. According to the patient he did not take any prescriptions or illicit drugs this evening. He states his parents are trying to get him evicted and that is why he is in the hospital. According to the ED and EMS the patient was found unconscious next to multiple empty pills bottles. EMS provided the patient with 6mg of narcan with a kay response and patient became more awake. On the way to the ED the patient had an episode of seizure like movements. No history of seizure disorder. Patient was given versed by EMS and the seizure activity was aborted. Patient's laboratory analysis in the ED showed positive benzodiazepenes and marijuana. CT head was within normal limits. On my assessment the patient states he feels sore all over but denies any specific concerns or complaints. Past Med Surg Social Fam HX - Past Medical History Attestation: Yes The following information was validated with the patient. Medical history: hypertension Additional medical history: Hep C Psychiatric history: depression - Past Surgical History Additional surgical history: tonsillectomy - Social History Smoking Status: Current every day smoker Packs per day: 0.5 Smokeless Tobacco Status: No Alcohol use: none Drug use: cocaine, prescription drug abuse - Family History Father Family Member Ethnicity: Non- Living Status: Still Living Hx Family Cardiac Disorders: Yes (CAD) Hx Family Endocrine Disorder: Yes (DM) Mother Family Member Ethnicity: Non- Living Status: Still Living Hx Family Cardiac Disorders: Yes (HTN) Sister Family Member Ethnicity: Non- Living Status: Still Living Internal Medicine - H&P: Meds Buprenorphine HCl/Naloxone HCl [Suboxone 8 mg-2 mg Sl Film] 1 each SL BID 05/31/15 [History] Naproxen [Naprosyn] 500 mg PO BID PRN #20 tablet 12/07/17 [Rx] Lidocaine Patch [Lidoderm 5% patch] 1 each TP DAILY PRN #3 adh..patch 04/15/18 [Rx] Naproxen [Naprosyn] 500 mg PO BID #10 tablet 04/15/18 [Rx] Orphenadrine [Norflex] 100 mg PO BID #6 tablet.er 04/15/18 [Rx] Allergy/AdvReac Type Severity Reaction Status Date / Time No Known Allergies Allergy Verified 12/06/17 23:03 All Systems PM: A 10-system review of systems was performed and is negative for pertinent findings except as documented above in the HPI. - Constitutional Constitutional: no fever(s) - EENT Eyes: as per HPI Ears: as per HPI Nose, mouth and throat: as per HPI - Breasts Breasts: as per HPI - Cardiovascular Cardiovascular ROS IM: no chest pain, no palpitations - Respiratory Respiratory: no cough, no dyspnea - Gastrointestinal Gastrointestinal: no abdominal pain, no vomiting - Genitourinary Genitourinary ROS male: as per HPI - Musculoskeletal Musculoskeletal ROS IM: as per HPI - Integumentary Integumentary IM: as per HPI - Neurological Neurological ROS: as per HPI - Psychiatric Psychiatric: as per HPI - Endocrine Endocrine IM: as per HPI - Hematologic/Lymphatic Hematologic/Lymphatic: as per HPI - Allergic/Immunologic Allergic/Immunologic: as per HPI - Constitutional Vitals: Temp Pulse Resp BP Pulse Ox 97.7 F 84 16 114/64 99 04/23/18 03:17 04/23/18 03:17 04/23/18 03:17 04/23/18 03:17 04/23/18 03:17 General appearance: Present: A&O X 3, no acute distress Exam: Patient alert and oriented in the room, hemodynamically stable, responds to all questions appropriately - Eye Eye exam: Present: EOMI Pupils: Present: PERRL - Neck Neck exam general surgery: Present: full ROM - Respiratory Respiratory exam: Present: CTAB - Cardiovascular Cardiovascular exam: Present: RRR - GI/Abdominal GI/Abdominal exam: Present: soft. Absent: rebound, rigid, tenderness - Additional comments: Doran in place - Extremities Exam Extremities exam: Present: full ROM - Neurological Exam Neurological exam: Present: alert, oriented X3, no focal deficits - Skin Skin exam: Present: warm Internal Med - H&P Results - Labs CBC & Chem 7: 04/22/18 23:46 04/22/18 23:46 Labs: Short CBC 04/22/18 Range/Units 23:46 WBC 6.4 (4.3-11.1) K/mcL Hgb 14.1 (12.9-16.9) g/dL Hct 42.4 (37.5-50.1) % Plt Count 149 (140-400) K/mcL Neutrophils # 3.8 (1.6-8.9) K/mcL BMP 04/22/18 23:46 Sodium 138 Potassium 4.2 Chloride 104 Carbon Dioxide 29 BUN 16 Creatinine 0.76 Glucose 86 Calcium 8.7 Cardiac Enzymes 04/22/18 Range/Units 23:46 Troponin I < 0.03 (< 0.04) ng/mL Liver Function 04/22/18 Range/Units 23:46 Total Bilirubin 0.3 (0.3-1.0) mg/dL Direct Bilirubin 0.1 (0.0-0.2) mg/dL AST 18 (13-39) Units/L ALT 30 (7-52) Units/L Alkaline Phosphatase 78 (34-104) Units/L Albumin 4.0 (3.5-5.7) g/dL Urine 04/22/18 Range/Units 23:46 Urine Color Yellow (Yellow) Urine Clarity Clear (Clear) Urine pH 5.5 (5.0-8.0) pH Units Ur Specific [place] 1.018 (1.010-1.025) Urine Protein Negative (Neg-Trace) mg/dL Urine Glucose (UA) Normal (Normal) mg/dL - Impressions ITS Impressions Chest X-Ray 04/22/18 23:31 IMPRESSION: 1. Mild pulmonary edema versus artifact caused by the portable technique and low lung volumes. 2. Interval enlargement of the cardiac silhouette is probably due to lower lung volumes. If there is concern for pericardial effusion an echocardiogram could be obtained. D/ / Miguel Sheth MD / Miguel Sheth MD Interpreting Provider: Miguel Sheth MD Head CT 04/23/18 00:30 IMPRESSION: No acute intracranial abnormality. D/ / Neal Dunn / Neal Dunn Interpreting Provider: Neal Dunn - Assessment and plan (1) Altered mental status Current Visit: Yes Status: Acute Assessment and plan: Patient alert and oriented x3 in room at this time Most likely associated with polysubstance overdose Will repeat bmp and cbc in the morning Neuro checks Qualifiers: Altered mental status type: unspecified Qualified Code(s): R41.82 - Altered mental status, unspecified (2) Ingestion of unknown drug Current Visit: Yes Status: Acute Assessment and plan: Patient found with multiple empty bottles surrounding him Laboratory analysis shows + benzos and marijuana otherwise benign Patient denies any intentional self harm, SI or HI Qualifiers: Encounter type: initial encounter Injury intent: accidental or unintentional Qualified Code(s): T50.901A - Poisoning by unspecified drugs, medicaments and biological substances, accidental (unintentional), initial encounter (3) Seizure-like activity Current Visit: Yes Status: Acute Assessment and plan: Neuro checks Patient alert and oriented x 3 at this time (4) DVT prophylaxis Current Visit: Yes Status: Acute Assessment and plan: SQ heparin - Time Spent With Patient Total time spent is greater than 50% in coordination of care (as documented) at patient's floor/unit and/or counseling patient: <Deepak Silvestre - Last Filed: 04/23/18 07:46> Date of Encounter: 04/23/18 Internal Medicine - H&P: HPI History of present illness: Mr. Cullen is a 32 year old male All Systems PM: A 10-system review of systems was performed and is negative for pertinent findings except as documented above in the HPI. - Constitutional Vitals: Temp Pulse Resp BP Pulse Ox 97.9 F 88 16 128/72 98 04/23/18 07:06 04/23/18 07:06 04/23/18 07:06 04/23/18 07:06 04/23/18 07:06 Internal Med - H&P Results - Labs CBC & Chem 7: 04/22/18 23:46 04/22/18 23:46 Labs: Short CBC 04/22/18 Range/Units 23:46 WBC 6.4 (4.3-11.1) K/mcL Hgb 14.1 (12.9-16.9) g/dL Hct 42.4 (37.5-50.1) % Plt Count 149 (140-400) K/mcL Neutrophils # 3.8 (1.6-8.9) K/mcL BMP 04/22/18 23:46 Sodium 138 Potassium 4.2 Chloride 104 Carbon Dioxide 29 BUN 16 Creatinine 0.76 Glucose 86 Calcium 8.7 Cardiac Enzymes 04/22/18 Range/Units 23:46 Troponin I < 0.03 (< 0.04) ng/mL Liver Function 04/22/18 Range/Units 23:46 Total Bilirubin 0.3 (0.3-1.0) mg/dL Direct Bilirubin 0.1 (0.0-0.2) mg/dL AST 18 (13-39) Units/L ALT 30 (7-52) Units/L Alkaline Phosphatase 78 (34-104) Units/L Albumin 4.0 (3.5-5.7) g/dL Urine 04/22/18 Range/Units 23:46 Urine Color Yellow (Yellow) Urine Clarity Clear (Clear) Urine pH 5.5 (5.0-8.0) pH Units Ur Specific [place] 1.018 (1.010-1.025) Urine Protein Negative (Neg-Trace) mg/dL Urine Glucose (UA) Normal (Normal) mg/dL - Impressions ITS Impressions Chest X-Ray 04/22/18 23:31 IMPRESSION: 1. Mild pulmonary edema versus artifact caused by the portable technique and low lung volumes. 2. Interval enlargement of the cardiac silhouette is probably due to lower lung volumes. If there is concern for pericardial effusion an echocardiogram could be obtained. D/ / Miguel Sheth MD / Miguel Sheth MD Interpreting Provider: Miguel Sheth MD Head CT 04/23/18 00:30 IMPRESSION: No acute intracranial abnormality. D/ / Neal Dunn / Neal Dunn Interpreting Provider: Neal Dunn - Time Spent With Patient Total time spent is greater than 50% in coordination of care (as documented) at patient's floor/unit and/or counseling patient: - Attending Attestation I saw and evaluated the patient. I reviewed the residents note, performed my own physical examination and agree with findings and plan as documented in the residents note. Patient seen and examined on 04/23/18. Very unpleasant patient, demanding pain medication, though on my exam he is somnolent, has difficulty remembering words and demonstrates no signs of pain. He is awake and alert, however. Threatening to leave AMA because we will not give him pain meds. I explained to him that he will not be receiving pain medications due to his admission for overdose and drowsiness. As I explained this to him he openly admitted to history of drug use, and feeling t ired. I explained to him again that these were reasons we would hold narcotic pain medications. He refuses to try NSAIDs. Patient initally refused to let me evaluate him, only later agreeing because he wanted to "Get checked out before he leaves." Lungs sounds clear, heart rate regular, no murmurs. No abdominal tenderness. Patient eating a snack without difficulty.
[2018-04-23] MEDS ORDERED: *HR* Heparin 5,000 UNIT/ML VIAL SQ SCH (06:00)
[2018-04-23 07:24] LABS: Basophils # 0.1 K/mcL (0.0-0.2); Basophils % 0.8 %; Eosinophils # 0.3 K/mcL (0.0-0.6); Eosinophils % 4.4 %; Hematocrit 43.2 % (37.5-50.1); Hemoglobin 14.4 g/dL (12.9-16.9); Immature Granulocytes % 0.3 % (0-4); Lymphocytes # 1.5 K/mcL (0.6-4.6); Lymphocytes % 22.5 %; Mean Corpuscular HGB Conc 33.3 g/dL (31.6-35.5); Mean Corpuscular Hemoglobin 28.5 pg (28.0-33.3); Mean Corpuscular Volume 85.5 fL (83.0-100.0); Mean Platelet Volume 12.5 fL (9.4-12.4); Monocytes # 0.3 K/mcL (0.0-1.3); Neutrophils # 4.4 K/mcL (1.6-8.9); Platelet Count 132 K/mcL (140-400); Red Blood Count 5.05 M/mcL (4.19-5.50); Red Cell Distribution Width 12.8 % (11.5-14.5)
[2018-04-23] MEDS ORDERED: Nicotine 14 MG PATCH.TD24 TD SCH (09:00)
--- NOTE | 2018-04-23 09:08 | Electrocardiograph Report ---
[place] [employer] [facility] Test Date: 2018-04-22 Pat Name: Gordo Cullen Department: TRAUMA1 Room: 3B43 Gender: M Equipment Engineer: : 1985 Requested By: Dana Lawson Order Number: [id number] Reading MD: Debra Dietrich Measurements Intervals [place] Rate: 86 P: 69 MO: 170 QRS: 56 QRSD: 108 T: 57 QT: 379 QTc: 454 Interpretive Statements Sinus rhythm Incomplete left bundle branch block ST elev, probable normal early repol pattern Electronically Signed On 04-23-2018 9:06:30 EST by Debra Dietrich
--- NOTE | 2018-04-23 09:23 | Discharge Summary ---
<Flora Sheehan - Last Filed: 04/23/18 13:29> Orders not resulted at time of discharge: Pending orders 04/23/18 07:53 Basic Metabolic Panel Routine Date of Encounter: 04/23/18 Time of Encounter: 09:18 - Discharge Diagnosis (1) Altered mental status Priority: Primary Status: Acute Qualifiers: Altered mental status type: transient alteration of awareness Qualified Code(s): R40.4 - Transient alteration of awareness (2) Ingestion of unknown drug Priority: Primary Status: Acute Qualifiers: Encounter type: initial encounter Injury intent: accidental or unintentional Qualified Code(s): T50.901A - Poisoning by unspecified drugs, medicaments and biological substances, accidental (unintentional), initial encounter (3) Seizure-like activity Priority: Primary Status: Acute Hospital course: Mr. Cullen is a 32 year old male who was admitted after being found unconscious and cyanotic in his bed surrounded by empty pill bottles. He had a positive response to narcan. He had seizure like activity during transport, and was given Versed which stopped the seizure like activity. UDS positive for marijuana and benzodiazepines. He has remained alert and oriented throughout this admission. He will be discharged home after clearance from neurology. - Time Spent with Patient Total time spent providing and/or coordinating discharge services: - Discharge Medications Home Medications: Buprenorphine HCl 8 mg PO BID 04/23/18 [History] Allergies/Adverse Reactions: Allergy/AdvReac Type Severity Reaction Status Date / Time No Known Allergies Allergy Verified 12/06/17 23:03 Date of admission: 04/23/18 01:51 Primary care physician: PCP NONE Discharging clinician: Flora Sheehan Anticipated date of discharge: 04/23/18 - Constitutional Vitals: Temp Pulse Resp BP Pulse Ox 97.9 F 88 16 128/72 98 04/23/18 07:06 04/23/18 07:06 04/23/18 07:06 04/23/18 07:06 04/23/18 07:06 General appearance: Present: A&O X 3, no acute distress Exam: . - Head Head exam: Present: atraumatic, normocephalic - Eye Eye exam: Present: PERRL, conjuntiva pink, sclera anicteric Pupils: Present: PERRL - Neck Neck exam general surgery: Present: supple, trachea midline - Respiratory Respiratory exam: Present: CTAB - Cardiovascular Cardiovascular exam: Present: RRR, +S1, +S2. Absent: systolic murmur - GI/Abdominal GI/Abdominal exam: Present: normal bowel sounds, soft. Absent: tenderness - Extremities Exam Extremities exam: Absent: pedal edema Additional comments: posterior tibial pulses 2/4 and equal - Neurological Exam Neurological exam: Present: alert, oriented X3, no focal deficits - Skin Skin exam: Present: dry, intact, warm - Patient Status Disposition: Home, Self-Care Condition: Fair Functional capacity at discharge: independent ambulation Overall status at discharge: patient is back to baseline - Discharge Instructions Follow Up With: Rae Sheppard [Resident] - 04/26/18 4:00 pm - Diet and Activity Diet: regular diet <Iesha Barrett - Last Filed: 04/23/18 14:14> Date of Encounter: 04/23/18 Hospital course: Mr. Cullen is a 32 year old male - Time Spent with Patient Total time spent providing and/or coordinating discharge services: Date of admission: 04/23/18 01:51 Primary care physician: PCP NONE Consults: 04/23/18 09:58 Consult to Neurology [CONS] Routine Consulting Provider: Neurology [facility] Reason for Consult: seizure like activity Time Notified: 09:58 Call Completed: Yes 04/23/18 12:36 Consult to Interpret Exam [CONS] Routine Consulting Provider: Susi Dutton Consult to Interpret Exam: Interpret EEG - Constitutional Vitals: Temp Pulse Resp BP Pulse Ox 98.3 F 80 16 114/69 100 04/23/18 12:02 04/23/18 12:02 04/23/18 12:02 04/23/18 12:02 04/23/18 12:02 - Attending Attestation I examined this patient and my medical decision-making was reviewed with the Resident Physician Dr. Sheehan. I agree with the documented findings, disp osition and treatment plan as described except to the extent set forth below. Mr. Cullen is a 32 year old male with known drug abuse history who is currently on Buprenorphine HCl 8 mg PO BID last filled on 04/09/18, was found unresponsive in his bed surrounded by empty pill bottles. He woke up with narcan, however on his enroute to ER he developed a brief episode of seizure. He was admitted in the hospital and placed him on monitoring engineer. He was knowledgeable neurologist who did EEG was came back is negative for seizure. His UDS is positive for BZD and Marijuana. Patient claims he has been taking his 's Xanax. So counseled the pt about substance abuse especially when he is on Buprenorphine. Neuro did not recommend any anti epilepsy medications. So will dc him home today. Gen; A, A, O x 4 Neuro: no acute deficits
--- NOTE | 2018-04-23 11:56 | EEG/EMG/Oth Biometrics Report ---
EEG Procedure Report Date of procedure: 04/23/18 EEG Procedure: Routine EEG Procedure Note: This EEG was acquired with standard international 10-20 system with EKG recording. The background EEG activity was replaced by the presence of low amplitude and fast activity. The background activity was reactive to eye openings. Sleep stages were not identified during this tracing. There are no electrographic seizures identified during this tracing. There are no epileptiform discharges and focal slowing noted during this recording. Photic stimulation produced and produced no abnormalities. Hyperventilation procedure not performed EKG tracing showed no significant cardiac dysrhythmia. Extensive beta activity seen diffusely during the study. Impression: This is essentially a normal awake and drowsy EEG. Extensive beta can be the results of medication effects including those from benzo and phenobarbital. Clinical Correlation: Normal EEGs, however, do not exclude epilepsy. Clinical correlation is advised.
[2018-04-23 12:04] VITALS: BP 114/69
[2018-04-23 13:40] LABS: BUN/Creatinine Ratio 16 (6-26); Blood Urea Nitrogen 13 mg/dL (6-20); Calcium 8.5 mg/dL (8.6-10.3); Carbon Dioxide 28 mEq/L (23-29); Chloride 107 mEq/L (98-107); Glucose 106 mg/dL (70-105); Osmolality,Calculated 289 (280-300); Potassium 4.2 mEq/L (3.5-5.1); Sodium 139 mEq/L (136-145); eGFR For Non-African Americans > 60 (> 60)
--- NOTE | 2018-04-23 13:44 | Neurology - Consult Note ---
Date of Encounter: 04/23/18 Time of Encounter: 12:00 History of Present Illness Chief complaint: shaking and passed out HPI: Mr. 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 Past Med Surg Social Fam HX - Past Medical History Medical history: hypertension Additional medical history: Hep C Psychiatric history: no psych history - Past Surgical History Additional surgical history: tonsillectomy - Social History Smoking Status: Current every day smoker Packs per day: 0.5 Smokeless Tobacco Status: No Alcohol use: none Drug use: cocaine, prescription drug abuse - Family History Father Family Member Ethnicity: Non- Living Status: Still Living Hx Family Cardiac Disorders: Yes (CAD) Hx Family Endocrine Disorder: Yes (DM) Mother Family Member Ethnicity: Non- Living Status: Still Living Hx Family Cardiac Disorders: Yes (HTN) Sister Family Member Ethnicity: Non- Living Status: Still Living Medications and Allergies Buprenorphine HCl 8 mg PO BID 04/23/18 [History] Allergy/AdvReac Type Severity Reaction Status Date / Time No Known Allergies Allergy Verified 12/06/17 23:03 All Systems: The remainder of the systems were reviewed and are negative Physical Examination - Vital Signs Vital Signs: Initial Vital Signs Temp Pulse Resp BP Pulse Ox 97.8 F 89 21 149/117 100 04/22/18 23:19 04/22/18 23:19 04/22/18 23:19 04/22/18 23:19 04/22/18 23:19 Results - Laboratory Findings CBC and BMP: 04/23/18 06:24 04/23/18 12:53 Abnormal lab findings: Abnormal lab results Plt Count 132 K/mcL (140-400) L 04/23/18 06:24 MPV 12.5 fL (9.4-12.4) H 04/23/18 06:24 Glucose 106 mg/dL (70-105) H 04/23/18 12:53 Calcium 8.5 mg/dL (8.6-10.3) L 04/23/18 12:53 Salicylates < 2.5 mg/dL (15.0-30.0) L 04/22/18 23:46 Acetaminophen < 10 mcg/mL (10-20) L 04/22/18 23:46 U Benzodiazepines Scrn Positive ng/mL (Eivlvv=686) H 04/22/18 23:41 U Marijuana (THC) Screen Positive ng/mL (Cutoff = 50) H 04/22/18 23:41 Consult Discharge Plan - Plan Referrals: NONE,PCP [Primary Care Provider] -
--- NOTE | 2018-04-23 16:47 | Neurology - Consult Note ---
Date of Encounter: 04/23/18 Time of Encounter: 12:00 Assessment and Plan (1) Seizure-like activity Status: Acute Patient with possible overdose and observed 'shaking activity', there are not definitive evidence of a seizure such as tongue biting or urinary incontinence or injuries. The patient has no prior history of seizures. He has nonfocal neurological examination. EEG showed excessive beta activity, likely a medication effect. At this time will recommend no antiepileptic therapy and no further testing. Patient advised to follow up with PCP with regarding to his benzodiazapam use. Okay to discharged from neurology perspective. Neurological prognosis of the condition: fair. All questions answered. History of Present Illness Chief complaint: shaking and passed out HPI: Mr. Cullen is a 32 year old male with PMH significant for history of CVA, recent head concussion and chronic pain syndrome who developed at home an syncopal episodes. Patient is a poor historian and could not tell me the shaking and passing out spell. Patient denies history of seizures. He states that he has seizure when he was younger. He denies any warning symptoms before he passed out. No tongue biting and urinary incontinence reported. The patient was initially found unresponsive with empty bottles around him and it was thought that overdosed drugs due to positive urine drug screen showing positive benzo and marijuana. Patient also suppose to take suboxone but he did not. No family history of seizure disorder. Patient states that he had stroke when he was very young but CT of head showed acute intracranial abnormality. He states that he had head concussion few days ago. Regarding the reported shaking activity, no detailed information available regarding the shaking activity. But no tongue biting or urinary incontinence reported. Past Med Surg Social Fam HX - Past Medical History Medical history: hypertension Additional medical history: Hep C Psychiatric history: no psych history - Past Surgical History Additional surgical history: tonsillectomy - Social History Smoking Status: Current every day smoker Packs per day: 0.5 Smokeless Tobacco Status: No Alcohol use: none Drug use: cocaine, prescription drug abuse - Family History Father Family Member Ethnicity: Non- Living Status: Still Living Hx Family Cardiac Disorders: Yes (CAD) Hx Family Endocrine Disorder: Yes (DM) Mother Family Member Ethnicity: Non- Living Status: Still Living Hx Family Cardiac Disorders: Yes (HTN) Sister Family Member Ethnicity: Non- Living Status: Still Living Medications and Allergies Buprenorphine HCl 8 mg PO BID 04/23/18 [History] Allergy/AdvReac Type Severity Reaction Status Date / Time No Known Allergies Allergy Verified 12/06/17 23:03 All Systems: The remainder of the systems were reviewed and are negative Physical Examination - Vital Signs Vital Signs: Initial Vital Signs Temp Pulse Resp BP Pulse Ox 97.8 F 89 21 149/117 100 04/22/18 23:19 04/22/18 23:19 04/22/18 23:19 04/22/18 23:19 04/22/18 23:19 - Constitutional General appearance: comfortable - Neurologic Detailed motor examination: full strength in all major muscle groups Motor examination - right side: 5/5: deltoids, biceps, triceps, wrist flexion, wrist extension, sack maker, hip flexors, tibialis Anterior, quadriceps, toe extension (EHL), plantarflexion Motor examination - left side: 5/5: deltoids, biceps, triceps, wrist flexion, wrist extension, hip flexors, sack maker, quadriceps, tibialis Anterior, toe extension (EHL), plantarflexion Detailed sensory examination: intact Posture: other (none) Reflex and gait examination: intact Reflexes: Biceps: 2+, Triceps: 2+, Brachioradialis: 2+, Patella: 2+, Achilles: 2+ Mental Status Examination: awake, alert, oriented to person, oriented to place, oriented to time, follows commands appropriately, answers questions appropriately, no agnosia, no aphasia, no aproxia Cranial nerve examination: PERRL, EOMI, visual rosales intact, corneal reflexes brisk symmetrically, sensory to face intact, mastication intact, no facial asymmetry is present, no dysarthria, hearing is intact symmetrically, soft palate elevates bilaterally upon phonation, gag reflex intact, flexes SCM and trapezius muscles symmetrically with full power, tongue protrudes midline, no atrophy or facial fasiculations present Cerebellar examination: no dysmetria, performs finger to nose and heel to bell symmetrically without ataxia, no gait ataxia, no truncal ataxia, no difficulty with rapid alternating movements Results - Laboratory Findings CBC and BMP: 04/23/18 06:24 04/23/18 12:53 Abnormal lab findings: Abnormal lab results Plt Count 132 K/mcL (140-400) L 04/23/18 06:24 MPV 12.5 fL (9.4-12.4) H 12/18/18 06:24 Glucose 106 mg/dL (70-105) H 04/23/18 12:53 Calcium 8.5 mg/dL (8.6-10.3) L 04/23/18 12:53 Salicylates < 2.5 mg/dL (15.0-30.0) L 04/22/18 23:46 Acetaminophen < 10 mcg/mL (10-20) L 04/22/18 23:46 U Benzodiazepines Scrn Positive ng/mL (Frieya=550) H 04/22/18 23:41 U Marijuana (THC) Screen Positive ng/mL (Cutoff = 50) H 04/22/18 23:41 - Diagnostic Findings Additional findings: CT OF THE HEAD WITHOUT CONTRAST 04/23/2018 12:56 am TECHNIQUE: CT of the head was performed without the administration of intravenous contrast. Dose modulation, iterative reconstruction, and/or weight based adjustment of the mA/kV was utilized to reduce the radiation dose to as low as reasonably achievable. COMPARISON: 04/15/2018. HISTORY: ORDERING SYSTEM PROVIDED HISTORY: AMS FINDINGS: BRAIN/VENTRICLES: There is no acute intracranial hemorrhage, mass effect or midline shift. No abnormal extra-axial fluid collection. The colon-white differentiation is maintained without evidence of an acute infarct. There is no evidence of hydrocephalus. ORBITS: The visualized portion of the orbits demonstrate no acute abnormality. SINUSES: Moderate severe ethmoid sinus mucosal thickening.. SOFT TISSUES/SKULL: No acute abnormality of the visualized skull or soft tissues. CT/CT head/brain wo con IMPRESSION: No acute intracranial abnormality. D/ / Neal Dunn / Neal Dunn Interpreting Provider: Neal Dunn Procedure Report Date of procedure: 04/23/18 EEG Procedure: Routine EEG Procedure Note: This EEG was acquired with standard international 10-20 system with EKG recordin g. The background EEG activity was replaced by the presence of low amplitude and fast activity. The background activity was reactive to eye openings. Sleep stages were not identified during this tracing. There are no electrographic seizures identified during this tracing. There are no epileptiform discharges and focal slowing noted during this recording. Photic stimulation produced and produced no abnormalities. Hyperventilation procedure not performed EKG tracing showed no significant cardiac dysrhythmia. Extensive beta activity seen diffusely during the study. Impression: This is essentially a normal awake and drowsy EEG. Extensive beta can be the results of medication effects including those from benzo and phenobarbital. Clinical Correlation: Normal EEGs, however, do not exclude epilepsy. Clinical correlation is advised. Documented By: Susi Dutton MD Signed By: <Electronically signed by Susi Dutton> 04/23/18 0961 Consult Discharge Plan - Plan Referrals: Rae Sheppard [Resident] - 04/26/18 4:00 pm
--- NOTE | 2018-04-23 17:58 | Electrocardiograph Report ---
[address] [place], [place] [address] Test Date: 2018-04-22 Pat Name: Gordo Cullen Department: [id number] Room: 3B43 Gender: M [employer]: : 1985 Requested By: Josiah Walden Order Number: [id number] Reading MD: Adryan Blankenship Measurements Intervals [place] Rate: 85 P: 74 [place]: 167 QRS: 58 QRSD: 110 T: 65 QT: 361 QTc: 430 Interpretive Statements Sinus rhythm Electronically Signed On 04-23-2018 17:56:47 EST by Adryan Blankenship
== END 2018-04-23 16:11 | disposition home or self-care (01) ==
LOC: EMEROOARM 23:17 → 3BNU 23:17
PROVIDERS: ADMIT Internal Medicine; ATTEND Internal Medicine